=== PATIENT | male | born 1980 | race Asian ===

== ENCOUNTER → 2021-12-22 | Outpatient (CLI) | payer BC | LOC: COL.RAD 08:27 | DX: K76.0 Fatty (change of) liver, not elsewhere classified (principal) ==

== ENCOUNTER 2022-01-27 07:35 | Day surgery (SDC) | payer BC ==
[~2022-01-27] VITALS: Ht 190.5 cm; Wt 91.4 kg
[2022-01-27 07:47] VITALS: BP 122/77; PULSE 70; TEMP 98.8
[2022-01-27 09:00] VITALS: BP 104/79; PULSE 79; TEMP 97.5
--- NOTE | 2022-01-27 09:00 | NUR ---
Patient arrives to [facility] via cart, accompanied by endo RN Xochitl Rodrigues. He is alert, oriented. He ambulates to the chair in his room with standby assist. PIV to TKO. VSS on room air. His is at the bedside. He denies pain or nausea. He requests and receives coffee with cream. Call light in reach. Discharge plan discussed.
[2022-01-27 09:15] VITALS: BP 117/80; PULSE 71
[2022-01-27 09:30] VITALS: BP 113/77; PULSE 66
--- NOTE | 2022-01-27 09:33 | NUR ---
Patient has met discharge criteria. Discharge instructions are discussed. He denies any questions and verbalizes understanding. PIV is removed with catheter intact and hemostasis achieved. He changes to his clothing independently. He is escorted to the exit via wheelchair by staff. He is discharged to home to the care of his , who drives him in a private vehicle at 0933.
== END 2022-01-27 09:32 | disposition home or self-care (01) ==
LOC: SDCO 07:35
DX: K29.50 Unspecified chronic gastritis without bleeding (principal); K76.0 Fatty (change of) liver, not elsewhere classified
CPT/HCPCS: J2704; J7030